=== PATIENT | female | born 1995 | race Caucasian/White ===

== ENCOUNTER → 2019-02-26 | Outpatient (CLI) | payer OTHER ==
--- NOTE | 2019-02-26 13:39 | RAD ---
EXAM: Lumbar spine, 2 views. HISTORY: Pain. COMPARISON: None. FINDINGS: 2 views of the lumbar spine are obtained. There is minimal lumbar levocurvature. There is minimal grade 1 anterolisthesis of L4 on L5. No fracture is seen. IMPRESSION: 1. No acute osseous finding. 2. Minimal lumbar levocurvature and minimal grade 1 anterolisthesis of L4 on L5. Electronically signed by: Kasia Cr MD (02/26/2019 1:36 PM) [place] [id number]
== END | disposition home or self-care (01) ==
LOC: RAD 10:36
PROVIDERS: ATTEND Surgery
DX: M43.16 Spondylolisthesis, lumbar region (principal); M43.8X6 Other specified deforming dorsopathies, lumbar region
CPT/HCPCS: 72100